=== PATIENT | female | born 1965 ===

== ENCOUNTER 2017-07-25 08:38 | Day surgery (SDC) | payer OTHER ==
[~2017-07-25 08:38] MED LIST: HYZAAR 100-12.1 EACH PO
== END 2017-07-25 15:15 | disposition home or self-care (01) ==
LOC: CIR.AMB 08:38
DX: M77.11 Lateral epicondylitis, right elbow (principal); S56.511A Strain of other extensor muscle, fascia and tendon at forearm level, right arm, initial encounter

== ENCOUNTER 2022-10-18 07:10 | Outpatient (CLI) | payer OTHER | END 2022-10-18 07:18 | disposition home or self-care (01) | LOC: RX STUDY 07:10 | PROVIDERS: ATTEND Internal Medicine Gastroenterology | DX: K56.600 Partial intestinal obstruction, unspecified as to cause (principal); K56.609 Unspecified intestinal obstruction, unspecified as to partial versus complete obstruction; C18.9 Malignant neoplasm of colon, unspecified; K57.32 Diverticulitis of large intestine without perforation or abscess without bleeding; K59.00 Constipation, unspecified ==